=== PATIENT | female | born 1975 | race Caucasian/White ===

== ENCOUNTER 2017-07-18 20:12 | Emergency (ER) | payer OTHER ==
--- NOTE | ~2017-07-18 | OR ---
PATIENT'S NAME: LAURIE MARTINEZ [facility] AGE: 41 Y [address] ROOM: [place] [address] LOCATION: [facility] ADMIT DATE: 07/18/2017 OR/Procedure Report DISCHARGE DATE: 07/18/2017 FAMILY PHYSICIAN: Physician, Unknown ATTENDING PHYSICIAN: Rona Graham SURGEON: Royal Garza DO SALESPERSON SEWING MACHINES: Staff. DATE OF PROCEDURE: 07/18/2017 PREOPERATIVE DIAGNOSES: Left distal radius comminuted intra-articular fracture with displacement and angulation and possible early carpal tunnel syndrome. POSTOPERATIVE DIAGNOSIS: Left distal radius comminuted intra-articular fracture with displacement and angulation and possible early carpal tunnel syndrome. PROCEDURE PERFORMED: Left distal radius closed reduction and splint application under IV sedation and hematoma blockade. ANESTHESIA: IV conscious sedation with hematoma blockade. ESTIMATED BLOOD LOSS: Zero. COMPLICATION: None. DISPOSITION: Stable to recovery room. JUSTIFICATION FOR PROCEDURE: Laurie Martinez is a 41-year-old female with a history of a fall down a flight of stairs earlier today. She presented to the emergency room with a displaced intra-articular distal radius fracture. She and her boyfriend were counseled as to treatment options, risks versus benefits, and necessary afterward care. Informed consent was obtained to proceed with a left distal radius closed reduction and splint application under IV sedation and any indicated procedures. PROCEDURE IN DETAIL: The patient was properly identified, both verbally and by name tag. She was taken to the emergency room and the anesthesiologist administered an IV sedation and a hematoma blockade was placed by first prepping the skin with alcohol and Betadine and then an 18-gauge needle was used to inject approximately 10 mL of a 50:50 solution of 0.25% Marcaine without epi and 1% lidocaine without epi. Once adequate anesthesia was obtained, the left distal radius fracture was placed through a gentle manipulation into the reduced position. No skin breakdown was caused by the manipulation. A sterile bulky bundle dressing was applied and a long-arm U PATIENT'S NAME: LAURIE MARTINEZ [facility] AGE: 41 Y [address] ROOM: [place] [address] LOCATION: [facility] ADMIT DATE: 07/18/2017 OR/Procedure Report DISCHARGE DATE: 07/18/2017 FAMILY PHYSICIAN: Physician, Unknown ATTENDING PHYSICIAN: Rona Graham A splint was applied holding the wrist in the reduced position in slight flexion and ulnar deviation. A well-padded splint was applied and postreduction x- rays were obtained. The fracture was adequately reduced and appeared reasonably stable in the splint. A sling was applied. The patient was aroused from IV sedation and maintained in the recovery room. Postoperative protocols were performed and the patient's neurovascular status was rechecked once she was awake and alert. The patient's preoperative paresthesias in the median and ulnar distributions had resolved, but the palmar aspect of the thumb which had a very slight tingling sensation. The rest of her neurovascular status was intact. All motor groups are intact. There was no pain with active or passive motion of the digits. DO BEATRICE GERONIMO/parishl /[id number] d: 07/21/17 0217 t: 07/25/17 2243, OPERATIVE SUMMARY
--- NOTE | ~2017-07-18 | ER ---
PATIENT'S NAME: MARYANN MARTINEZ [facility] AGE: 41 Y [address] ROOM: [place] [address] LOCATION: [facility] ADMIT DATE: 07/18/2017 ER/Outpatient Report DISCHARGE DATE: 07/18/2017 FAMILY PHYSICIAN: Physician, Unknown ATTENDING PHYSICIAN: Rona Graham HISTORY OF PRESENT ILLNESS: A 41-year-old female who presents with left wrist pain after falling on an outstretched hand. The patient states that she was going to her Botox appointment, and was wearing high heels and tripped, putting out her left hand to block her fall. Has 10/10 pain of that left wrist and an obvious deformity. She is right handed. She denies any numbness or tingling. No other complaints at this time. PAST MEDICAL HISTORY: None. SURGICAL HISTORY: Iliac stents. SOCIAL HISTORY: She does not smoke, drink, or use any drugs. MEDICATIONS: OCP. ALLERGIES: NONE. REVIEW OF SYSTEMS: Reviewed by me and negative with the exception of those discussed in the HPI. PHYSICAL EXAMINATION: VITAL SIGNS: The patient's blood pressure is 120/67, heart rate 60, respiratory rate 20, temperature is 96.7, sats are 97% on room air. GENERAL: The patient appears in moderate distress. She is cradling her left arm. HEAD: She has no signs of head trauma. NECK: She has no C-spine tenderness either. HEART: Heart rate is regular rate and rhythm. At this time, she is not tachycardic, she is not hypertensive. ABDOMEN: Soft, nontender, nondistended. She has no other signs of trauma to her chest or abdomen. EXTREMITIES: She has decreased grasp strength on that left side but intact sensation in the radial, ulnar, and median distributions on that left. Radial PATIENT'S NAME: JUAN LEVINDALE [facility] AGE: 41 Y [address] ROOM: [place] [address] LOCATION: [facility] ADMIT DATE: 07/18/2017 ER/Outpatient Report DISCHARGE DATE: 07/18/2017 FAMILY PHYSICIAN: , Unknown ATTENDING PHYSICIAN: Rona Graham pulse is intact. She has an obvious deformity of that left wrist and tenderness throughout. EMERGENCY ROOM COURSE: The patient received an IV and received fentanyl for pain. I also did a hematoma block. I injected about 10 mL of lidocaine without epi into there. After which, the patient had significant improvement of her pain. We were then able to obtain x-rays, and it shows a comminuted displaced fracture of the distal radius and ulna with impaction. The patient continues to be neurologically intact. I consulted Dr. Garza, who is our orthopedic surgeon manager community relations, to come in reduce her wrist. Please see his notes for more details. Anesthesia was also consulted for conscious sedation for this procedure. Please see their notes. The patient was recovered, and Dr. Garza wrote for pain meds. She is to follow up with him in 3 days for an appointment to recheck and likely surgery. The patient understands. She is discharged in stable condition. IMPRESSION: Distal radius, ulnar fracture. MD SAMANTHA VALLADARES/michael /[id number] d: 07/19/17 0331 t: 07/19/17 0608, OUTPATIENT REPORT
--- NOTE | ~2017-07-18 | HP ---
PATIENT'S NAME: LAURIE SELF [facility] AGE: 41 Y [address] ROOM: [place] [address] LOCATION: [facility] ADMIT DATE: 07/18/2017 History & Physical DISCHARGE DATE: 07/18/2017 FAMILY PHYSICIAN: , Unknown ATTENDING PHYSICIAN: Rona Graham DATE OF SERVICE: 07/18/2017 Emergency Room History and Physical and Orthopedic Consult. 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 She had some mild pain, bruising, and abrasions around the left upper arm and shoulder and severe pain with deformity at the left wrist. The patient was seen in the emergency room where the on duty ER physician placed a hematoma blockade. The patient is now complaining of paresthesias in the palmar aspect of all 5 digits of the left hand. The hematoma block is no longer working with regard to pain control, and the patient has no other complaints. She denied head or neck or back injury and denied loss of consciousness. PAST MEDICAL HISTORY: Significant for vascular insufficiency of the lower extremities, for which she had some stents placed in the iliac artery and some genitourinary issues unrelated to her present complaint. PAST SURGICAL HISTORY: Significant for the iliac stents and some procedures. SOCIAL HISTORY: Negative for tobacco and street drugs. She uses social EtOH in moderation. FAMILY HISTORY: Noncontributory. MEDICATIONS: Listed on her ER documents. ALLERGIES: SHE HAS NO KNOWN DRUG ALLERGIES. REVIEW OF SYSTEMS: Ten system review reveals no other complaints on review of systems. PATIENT'S NAME: LAURIE SELF [facility] AGE: 41 Y [address] ROOM: [place] [address] LOCATION: [facility] ADMIT DATE: 07/18/2017 History & Physical DISCHARGE DATE: 07/18/2017 FAMILY PHYSICIAN: Physician, Unknown ATTENDING PHYSICIAN: Rona Graham DIAGNOSTIC DATA: X-rays of the left wrist reveal a comminuted intra-articular 4 or 5-part distal radius fracture and a displaced fracture of the ulnar styloid to the base suggesting TFCC instability. PHYSICAL EXAMINATION: On physical examination of the left upper extremity, it shows a silver fork deformity at the wrist with good radial and ulnar pulses. There is diminished light touch sensation in both the median and ulnar nerve distributions. She has intact radial sensation. There is good capillary refill distally in all digits. All motors are grossly intact including the extensor tendon to the thumb, but excursion is limited by pain and discomfort. She has good capillary refill distally, no adenopathy proximally. She does have some very superficial mild skin abrasions about the shoulder and upper arm. The shoulder itself shows full range of motion actively and passively without crepitus. Wrist motion was not tested. ASSESSMENT: Left distal radius comminuted intra-articular fracture and a left ulnar styloid fracture through the base suggesting a triangular fibrocartilage complex injury. Plan, treatment options, risks versus benefits, and necessary afterward care were discussed with the patient and her boyfriend who is accompanying her. She gave informed consent to proceed with a closed reduction under IV sedation and hematoma blockade. PROCEDURE: Please see the operative note. DO BEATRICE GERONIMO/parishl /[id number] D: [id number] T: [id number] HISTORY & PHYSICAL
== END 2017-07-18 23:38 | disposition disaster alternative care site (69) ==
LOC: GACC 20:12
PROC: 0PSJXZZ Reposition Left Radius, External Approach (ICD-10-PCS; principal; 2017-07-18)
PROC: 0PSLXZZ Reposition Left Ulna, External Approach (ICD-10-PCS; 2017-07-18)
DX: S52.572A Other intraarticular fracture of lower end of left radius, initial encounter for closed fracture (principal); S52.612A Displaced fracture of left ulna styloid process, initial encounter for closed fracture; S40.219A Abrasion of unspecified shoulder, initial encounter; S40.819A Abrasion of unspecified upper arm, initial encounter; W10.9XXA Fall (on) (from) unspecified stairs and steps, initial encounter
CPT/HCPCS: J2405; J3010; J7030